=== PATIENT | female | born 1995 | race Two or more races ===

== ENCOUNTER 2022-09-11 09:53 | Outpatient (CLI) | payer OTHER | END 2022-09-11 10:41 | disposition home or self-care (01) | LOC: PRENATAL 09:53 | PROVIDERS: ATTEND Obstetrics & Gynecology Maternal & Fetal Medicine | DX: O36.80X0 Pregnancy with inconclusive fetal viability, not applicable or unspecified (principal); Z3A.13 13 weeks gestation of pregnancy ==

== ENCOUNTER 2022-10-30 08:10 | Outpatient (CLI) | payer OTHER | END 2022-10-30 09:30 | disposition home or self-care (01) | LOC: PRENATAL 08:10 | PROVIDERS: ATTEND Obstetrics & Gynecology Maternal & Fetal Medicine | DX: O35.9XX0 Maternal care for (suspected) fetal abnormality and damage, unspecified, not applicable or unspecified (principal); O35.3XX0 Maternal care for (suspected) damage to fetus from viral disease in mother, not applicable or unspecified; Z3A.20 20 weeks gestation of pregnancy ==

== ENCOUNTER → 2022-11-11 | Outpatient (CLI) | payer OTHER | END | disposition home or self-care (01) | LOC: NST 13:46 | PROVIDERS: ATTEND Specialist | DX: Z34.82 Encounter for supervision of other normal pregnancy, second trimester (principal) ==

== ENCOUNTER 2022-12-02 21:59 | Emergency (ER) | payer OTHER ==
[~2022-12-02] VITALS: Ht 157.5 cm; Wt 61.2 kg
== END 2022-12-02 22:57 | disposition home or self-care (01) ==
LOC: ER 21:59
DX: O99.512 Diseases of the respiratory system complicating pregnancy, second trimester (principal); J06.9 Acute upper respiratory infection, unspecified; Z3A.24 24 weeks gestation of pregnancy; Z20.822 Contact with and (suspected) exposure to COVID-19

== ENCOUNTER 2022-12-22 00:59 | Outpatient (CLI) | payer OTHER ==
[2022-12-22] MEDS ORDERED: PRENATAL + DHA1 EAC1 PO (01:07)
[2022-12-22] MEDS ORDERED: CEFUROXIME250 MG PO (12:50)
== END 2022-12-22 15:07 | disposition home or self-care (01) ==
LOC: OBS/DEL 00:59
PROVIDERS: ATTEND Specialist
DX: O23.32 Infections of other parts of urinary tract in pregnancy, second trimester (principal); N39.0 Urinary tract infection, site not specified; R10.2 Pelvic and perineal pain; Z3A.27 27 weeks gestation of pregnancy

== ENCOUNTER 2023-01-23 09:17 | Outpatient (CLI) | payer OTHER ==
[~2023-01-23 09:17] MED LIST: CEFUROXIME250 MG PO; PRENATAL + DHA1 EAC1 PO
== END 2023-01-23 10:25 | disposition home or self-care (01) ==
LOC: PRENATAL 09:17
PROVIDERS: ATTEND Obstetrics & Gynecology Maternal & Fetal Medicine
DX: O26.849 Uterine size-date discrepancy, unspecified trimester (principal); O36.8199 Decreased fetal movements, unspecified trimester, other fetus; Z3A.32 32 weeks gestation of pregnancy

== ENCOUNTER 2023-02-09 21:38 | Outpatient (CLI) | payer OTHER | END 2023-02-10 10:30 | disposition home or self-care (01) | LOC: OBS/DEL 21:38 | PROVIDERS: ATTEND Obstetrics & Gynecology | DX: O47.03 False labor before 37 completed weeks of gestation, third trimester (principal); Z3A.34 34 weeks gestation of pregnancy; Z20.822 Contact with and (suspected) exposure to COVID-19 ==

== ENCOUNTER 2023-03-05 13:30 | Inpatient (IN) | payer OTHER ==
[~2023-03-05] VITALS: Ht 157.5 cm; Wt 70.8 kg
== END 2023-03-15 14:19 | disposition home or self-care (01) | DRG 806 ==
LOC: LDR 03-12 22:06 → OB/GYN 03-12 22:06
PROVIDERS: ADMIT Specialist; ATTEND Specialist
PROC: 4A1HXCZ Monitoring of Products of Conception, Cardiac Rate, External Approach (ICD-10-PCS; 2023-03-12)
PROC: 10E0XZZ Delivery of Products of Conception, External Approach (ICD-10-PCS; principal; 2023-03-13)
PROC: 0HQ9XZZ Repair Perineum Skin, External Approach (ICD-10-PCS; 2023-03-13)
DX: O70.0 First degree perineal laceration during delivery (principal); O98.82 Other maternal infectious and parasitic diseases complicating childbirth; Z37.0 Single live birth; B08.1 Molluscum contagiosum; Z3A.39 39 weeks gestation of pregnancy; Z20.822 Contact with and (suspected) exposure to COVID-19

== ENCOUNTER 2024-04-16 10:50 | Emergency (ER) | payer OTHER ==
[~2024-04-16] VITALS: Ht 157.5 cm; Wt 60.3 kg
[2024-04-16 12:36] LABS: HEMATOCRIT 38.3 % (36.0-45.00); HEMOGLOBIN 12.7 g/dL (12.0-15.00); MEAN CELL VOLUME 85.9 fL (80.00-100.00); MEAN CORPUSCULAR HEMOGLOBIN 28.6 pg (27.00-32.0); MEAN CORPUSCULAR HGB CONC 33.2 g/dl (32.0-36.0); PLATELET COUNT 281 K/uL (150-450); RED BLOOD COUNT 4.46 M/uL (4.00-6.00); RED CELL DISTRIBUTION WIDTH 13.5 % (11.5-14.5)
[2024-04-16 13:03] LABS: PH,URINE 5.5 (5.0-8.0); URINE APPEARANCE Cloudy; URINE BILIRRUBIN Small (NEGATIVE); URINE BLOOD Trace; URINE COLOR Dark Yellow; URINE GLUCOSE Negative (NEGATIVE); URINE KETONE Trace (NEGATIVE); URINE LEUKOCYTE Small; URINE NITRATE Negative; URINE PROTEIN Trace (NEGATIVE)
[2024-04-16 13:06] LABS: URINE BACTERIA 2688.8 uL (0.0-1933); URINE CAST 2.74 uL (0.0-1.40); URINE EPITHELIAL CELLS 68.9 uL (0.0-38.8); URINE RBC 18.6 uL (0.0-20.8); URINE WBC 301.3 uL (0.0-23.2)
[2024-04-16 13:29] LABS: URINE MUCUS HEAVY
[2024-04-16 13:39] LABS: CREATININE SERUM 0.52 mg/dL (0.55-1.02); GFR 141.45; POTASSIUM 4.29 mEq/L (3.5-5.1)
[2024-04-16 15:45] VITALS: BP 105/71; O2SAT 100
[2024-04-16] MEDS ORDERED: NITROFURANTOIN100 MG PO (17:47)
[2024-04-16] MEDS ORDERED: ONDANSETRON ODT8 MG PO (17:47)
== END 2024-04-16 18:00 | disposition home or self-care (01) ==
LOC: ER 10:51
PROVIDERS: General Practice
DX: O20.9 Hemorrhage in early pregnancy, unspecified (principal); O23.41 Unspecified infection of urinary tract in pregnancy, first trimester; N39.0 Urinary tract infection, site not specified; O34.81 Maternal care for other abnormalities of pelvic organs, first trimester; N83.291 Other ovarian cyst, right side; Z3A.00 Weeks of gestation of pregnancy not specified